=== PATIENT | female | born 1975 | race Caucasian/White ===

== ENCOUNTER 2019-12-23 06:32 | Inpatient (IN) ==
[~2019-12-23 06:32] MED LIST: Famotidine 20 MG/2 ML VIAL IVP ONE; Gabapentin 300 MG CAPSULE PO ONE; Ipratropium/Albuterol Neb 3 ML IH ONE
[2019-12-23] MEDS ORDERED: Bupivacaine/EPI 1:200k 0.25%PF 10 ML VIAL INFILT ONE (06:51)
[2019-12-23] MEDS ORDERED: CeFAZolin Syr 2,000MG/20 ML 2,000 MG/20 ML SYRINGE IVPB ONE (06:52)
[2019-12-23] MEDS ORDERED: Albuterol 2.5 MG/3 ML NEBULIZER IH PRN (06:52)
[2019-12-23] MEDS ORDERED: *HR* Labetalol 20 MG/4 ML SYRINGE IVP PRN (07:00)
[2019-12-23] MEDS ORDERED: Ringers Solution, Lactated 1,000 ML IVC SCH ×2 (07:00→13:51)
[2019-12-23] MEDS ORDERED: *HR* Promethazine 25 MG/ML VIAL IVP PRN (07:00)
[2019-12-23] MEDS ORDERED: Ondansetron 4 MG/2 ML VIAL IVP PRN (07:00)
[2019-12-23] MEDS ORDERED: *HR* Rocuronium Bromide 50 MG/5 ML VIAL ONE ×2 (07:05→09:16)
[2019-12-23] MEDS ORDERED: Ondansetron 4 MG/2 ML VIAL ONE (07:05)
[2019-12-23] MEDS ORDERED: Dexamethasone 4 MG/ML VIAL ONE (07:05)
[2019-12-23] MEDS ORDERED: *HR* Midazolam HCl 2 MG/2 ML VIAL ONE (07:05)
[2019-12-23] MEDS ORDERED: Lidocaine -MPF 2% 2 ML VIAL ONE (07:05)
[2019-12-23] MEDS ORDERED: *HR* Propofol 200 MG/20 ML VIAL IVP ONE (07:05)
[2019-12-23] MEDS ORDERED: *HR* FentaNYL (PF) 100 MCG/2 ML VIAL ONE ×2 (07:05→08:45)
[2019-12-23] MEDS ORDERED: *HR* Succinylcholine 200 MG/10 ML VIAL IVP ONE (07:05)
[2019-12-23] MEDS ORDERED: *HR* HYDROMORPHONE 2 MG/ML VIAL ONE (09:47)
[2019-12-23] MEDS: *HR* HYDROmorphone (PF) 1 MG/ML SYRINGE IVP PRN ×6 (11:13→11:49)
[2019-12-23] MEDS: *HR* LORazepam 2 MG/ML VIAL IVP PRN ×2 (11:57→12:17)
[2019-12-23] MEDS ORDERED: Ibuprofen 600 MG TABLET PO PRN (13:51)
[2019-12-23] MEDS: *HR* OxyCODONE/APAP 5/325 TABLET PO PRN ×2 (16:08→20:22)
[2019-12-23] MEDS ORDERED: Ketorolac 30 MG/ML VIAL IVP PRN (17:39)
[2019-12-23] MEDS: *HR* OxyCODONE Immed Rel 5 MG TABLET PO PRN (18:10)
[2019-12-24] MEDS: *HR* OxyCODONE Immed Rel 5 MG TABLET PO PRN ×2 (00:14→04:33)
[2019-12-24 08:03] VITALS: BP 105/66
[2019-12-24] MEDS: *HR* OxyCODONE/APAP 5/325 TABLET PO PRN (08:56)
== END 2019-12-24 10:05 | disposition home or self-care (01) | DRG 743 ==
LOC: SAMDAY 06:32 → 1NENUOBS 13:51
PROVIDERS: ADMIT Student in an Organized Health Care Education/Training Program; ATTEND Student in an Organized Health Care Education/Training Program

== ENCOUNTER 2019-12-31 15:57 | Inpatient (IN) ==
[2019-12-31] MEDS ORDERED: 0.9 % Sodium Chloride 1,000 ML IVC ONE ×3 (16:09→18:16)
[2019-12-31] MEDS ORDERED: *HR* HYDROmorphone (PF) 1 MG/ML SYRINGE IVP ONE ×2 (16:10→16:53)
[2019-12-31] MEDS ORDERED: Ondansetron 4 MG/2 ML VIAL IVP ONE (16:10)
[2019-12-31] MEDS ORDERED: Isovue-370 500 ML BOTTLE IVP ONE (16:10)
[2019-12-31 16:45] LABS: Hematocrit 34.2 % (35.3-44.9); Hemoglobin 10.1 g/dL (11.5-15.4); Mean Corpuscular HGB Conc 29.5 g/dL (31.6-35.5); Mean Corpuscular Hemoglobin 23.9 pg (28.0-33.3); Mean Platelet Volume 10.4 fL (9.4-12.4); Nucleated Red Blood Cells 0.1 /100 WBC (0); Platelet Count 297 K/mcL (140-400); Red Blood Count 4.22 M/mcL (3.82-4.97); Red Cell Distribution Width 18.2 % (11.5-14.5); White Blood Count 20.6 K/mcL (4.3-11.1)
[2019-12-31 16:49] LABS: INR 1.5; Prothrombin Time 16.9 Seconds (9.4-12.1)
[2019-12-31 17:14] LABS: Eosinophils # 0.4 K/mcL (0.0-0.6); Large Platelets Present (Not Present); Lymphocytes # 0.8 K/mcL (0.6-4.6); Neutrophils # 19.4 K/mcL (1.6-8.9)
[2019-12-31 17:17] LABS: Albumin 3.6 g/dL (3.5-5.7); Bilirubin,Total 1.2 mg/dL (0.3-1.0); Globulin 3.6 g/dL (2.4-3.5); Magnesium 1.5 mg/dL (1.6-2.6); Potassium 2.6 mEq/L (3.5-5.1); Total Protein 7.2 g/dL (6.4-8.9)
[2019-12-31] MEDS ORDERED: Cefepime HCl 2,000 MG in Water for inj. (sterile) 20 ML IVP ONE (17:39)
[2019-12-31] MEDS ORDERED: MetroNIDAZOLE 500 MG/100 ML 500 MG/100 ML BAG IVPB ONE (17:39)
[2019-12-31] MEDS ORDERED: *HR* FentaNYL (PF) 100 MCG/2 ML VIAL IVP ONE (18:23)
[2019-12-31] MEDS ORDERED: Naloxone 0.4 MG/ML INJ IVP PRN (18:41)
[2019-12-31] MEDS ORDERED: Norepinephrine 4 MG in 0.9 % Sodium Chloride 250 ML IVC SCH (18:45)
[2019-12-31] MEDS ORDERED: Vancomycin (wt based) 1,000 MG VIAL IVPB SCH (19:00)
[2019-12-31] MEDS ORDERED: Albuterol 2.5 MG/3 ML NEBULIZER IH PRN (19:21)
[2019-12-31] MEDS ORDERED: Ondansetron 4 MG/2 ML VIAL IVP PRN (20:09)
[2019-12-31] MEDS ORDERED: Ipratropium/Albuterol Neb 3 ML IH ONE (20:09)
[2019-12-31] MEDS ORDERED: *HR* Promethazine 25 MG/ML VIAL IVP PRN (20:09)
[2019-12-31] MEDS ORDERED: *HR* HYDROmorphone (PF) 1 MG/ML SYRINGE IVP PRN (20:09)
[2019-12-31] MEDS ORDERED: Lidocaine -MPF 4% 5 ML AMPUL ONE (20:25)
[2019-12-31] MEDS ORDERED: *HR* Rocuronium Bromide 50 MG/5 ML VIAL ONE (20:25)
[2019-12-31] MEDS ORDERED: *HR* Succinylcholine 200 MG/10 ML VIAL IVP ONE (20:25)
[2019-12-31] MEDS ORDERED: *HR* FentaNYL (PF) 100 MCG/2 ML VIAL ONE ×2 (20:29→20:56)
[2019-12-31] MEDS ORDERED: *HR* Propofol 200 MG/20 ML VIAL IVP ONE (20:29)
[2019-12-31] MEDS ORDERED: Ondansetron 4 MG/2 ML VIAL ONE (20:29)
[2019-12-31] MEDS ORDERED: Lidocaine -MPF 2% 2 ML VIAL ONE (20:29)
[2019-12-31] MEDS ORDERED: Dexamethasone 4 MG/ML VIAL ONE (20:29)
[2019-12-31] MEDS ORDERED: EPHEDrine 50 MG/ML VIAL ONE (20:30)
[2019-12-31] MEDS ORDERED: *HR* Vasopressin 20 UNIT/ML VIAL ONE (20:31)
[2019-12-31] MEDS ORDERED: Heparin 1,000 UNITS/500 mL 500 ML ONE (20:38)
[2019-12-31] MEDS ORDERED: Albumin Human 5% 25.0 GM/500 ML IV.SOLN ONE (21:06)
[2019-12-31] MEDS ORDERED: *HR* PHENYLEPHRINE 1,000 MCG/10 ML SYRINGE IVP ONE (21:21)
[2019-12-31] MEDS ORDERED: CefOXitin 2,000 MG VIAL ONE (21:22)
[2019-12-31] MEDS ORDERED: *HR* HYDROMORPHONE 2 MG/ML VIAL ONE (21:39)
[2019-12-31] MEDS ORDERED: Potassium Phosphate 44 MEQ in 0.9 % Sodium Chloride 250 ML IVPB PRN (21:51)
[2019-12-31] MEDS ORDERED: Calcium Gluconate 1gm/50mL 1 GM/50 ML BAG IVPB PRN (21:51)
[2019-12-31] MEDS ORDERED: Potassium Chloride 40 MEQ/200 ML BAG IVPB PRN (21:51)
[2019-12-31] MEDS ORDERED: Ipratropium/Albuterol Neb 3 ML IH SCH (22:00)
[2019-12-31 22:25] LABS: ABG Base Excess -6 mEq/L (-2 to 3); ABG HCO3 21 mEq/L (21-27); ABG Oxygen Saturation 94 % (95-98); ABG PCO2 47 mmHg (35-45); ABG PH 7.27 pH Units (7.32-7.45); ABG PO2 80 mmHg (85-104); ABG TCO2 23 mEq/L (20-26); Blood Gas VT 525 cc
[2019-12-31] MEDS: *HR* HYDROmorphone (PF) 1 MG/ML SYRINGE IVP PRN (23:40)
[2020-01-01 00:26] LABS: Albumin 3.2 g/dL (3.5-5.7); Albumin/Globulin Ratio 1.1 (1.1-2.2); Bilirubin,Total 1.1 mg/dL (0.3-1.0); Calcium 7.2 mg/dL (8.6-10.3); Globulin 2.9 g/dL (2.4-3.5); Magnesium 1.6 mg/dL (1.6-2.6); Phosphorous 6.2 mg/dL (2.7-4.5); Potassium 3.5 mEq/L (3.5-5.1); Total Protein 6.1 g/dL (6.4-8.9)
[2020-01-01 00:28] LABS: Eosinophils % 0.1 %
[2020-01-01 00:29] LABS: Basophils % 0.2 %; Immature Granulocytes % 0.7 % (0-4); Lymphocytes # 0.6 K/mcL (0.6-4.6); Lymphocytes % 4.1 %; Mean Corpuscular HGB Conc 28.6 g/dL (31.6-35.5); Mean Corpuscular Hemoglobin 23.6 pg (28.0-33.3); Mean Corpuscular Volume 82.6 fL (83.0-100.0); Mean Platelet Volume 10.6 fL (9.4-12.4); Monocytes # 0.3 K/mcL (0.0-1.3); Monocytes % 2.2 %; Neutrophils # 12.7 K/mcL (1.6-8.9); Platelet Count 245 K/mcL (140-400); Red Blood Count 3.39 M/mcL (3.82-4.97); Red Cell Distribution Width 18.1 % (11.5-14.5); Segmented Neutrophils % 92.7 %; White Blood Count 13.7 K/mcL (4.3-11.1)
[2020-01-01] MEDS ORDERED: Potassium Phosphate 44 MEQ in 0.9 % Sodium Chloride 250 ML IVPB PRN (00:39)
[2020-01-01] MEDS ORDERED: Naloxone 0.4 MG/ML INJ IVP PRN ×2 (00:39→12:19)
[2020-01-01] MEDS ORDERED: Norepinephrine 4 MG in 0.9 % Sodium Chloride 250 ML IVC SCH (00:39)
[2020-01-01] MEDS ORDERED: Albuterol 2.5 MG/3 ML NEBULIZER IH PRN ×2 (00:39→12:19)
[2020-01-01] MEDS ORDERED: *HR* OxyCODONE Immed Rel 5 MG TABLET PO PRN (00:39)
[2020-01-01] MEDS ORDERED: Calcium Gluconate 1gm/50mL 1 GM/50 ML BAG IVPB PRN (00:39)
[2020-01-01 00:50] LABS: Hypochromasia Present (Not Present); Platelet Estimate Normal (Normal)
[2020-01-01] MEDS ORDERED: Ondansetron 4 MG/2 ML VIAL IVP PRN ×2 (00:51→12:19)
[2020-01-01] MEDS ORDERED: Acetaminophen IV 1,000 MG/100 ML INFUS..BTL IVPB ONE ×2 (00:52→06:00)
[2020-01-01] MEDS: D5% in 0.9% NACL 1,000 ML IVC SCH ×2 (01:04→11:20)
[2020-01-01] MEDS: Potassium Chloride 40 MEQ/200 ML BAG IVPB PRN ×4 (01:05→07:37)
[2020-01-01] MEDS: *HR* HYDROmorphone (PF) 1 MG/ML SYRINGE IVP PRN ×4 (01:07→21:09)
[2020-01-01] MEDS: Ipratropium/Albuterol Neb 3 ML IH SCH ×4 (03:35→22:13)
[2020-01-01 05:11] LABS: INR 1.6; Prothrombin Time 17.7 Seconds (9.4-12.1)
[2020-01-01 05:12] LABS: Basophils % 0.1 %; Hemoglobin 7.7 g/dL (11.5-15.4); Immature Granulocytes % 0.4 % (0-4)
[2020-01-01 05:14] LABS: Hematocrit 26.9 % (35.3-44.9); Lymphocytes # 0.3 K/mcL (0.6-4.6); Lymphocytes % 2.5 %; Mean Corpuscular HGB Conc 28.6 g/dL (31.6-35.5); Mean Corpuscular Hemoglobin 23.6 pg (28.0-33.3); Mean Corpuscular Volume 82.5 fL (83.0-100.0); Mean Platelet Volume 10.4 fL (9.4-12.4); Monocytes # 0.3 K/mcL (0.0-1.3); Monocytes % 2.8 %; Neutrophils # 10.7 K/mcL (1.6-8.9); Platelet Count 211 K/mcL (140-400); Red Blood Count 3.26 M/mcL (3.82-4.97); Red Cell Distribution Width 18.1 % (11.5-14.5); Segmented Neutrophils % 94.2 %; White Blood Count 11.4 K/mcL (4.3-11.1)
[2020-01-01 05:21] LABS: Bilirubin,Urine Negative (Negative); Blood,Urine Small (Negative); Clarity,Urine Cloudy (Clear); Color,Urine Dark Yellow (Yellow); Glucose,Urine (UA) Normal (Normal); Ketones,Urine Trace mg/dL (Negative); Leukocyte Esterase,Urine Negative (Negative); Nitrite,Urine Negative (Negative); Protein,Urine 100 mg/dL (Neg-Trace); Specific Gravity,Urine > 1.030 (1.010-1.025); Urobilinogen,Urine Normal (Normal)
[2020-01-01 05:22] LABS: Bilirubin,Direct 0.5 mg/dL (0.0-0.2); Bilirubin,Indirect 0.5 mg/dL (0.0-1.0); Calcium 7.3 mg/dL (8.6-10.3); Globulin 2.9 g/dL (2.4-3.5); Magnesium 2.4 mg/dL (1.6-2.6); Phosphorous 5.6 mg/dL (2.7-4.5); Potassium 3.7 mEq/L (3.5-5.1); Total Protein 5.9 g/dL (6.4-8.9)
[2020-01-01 05:23] LABS: Bacteria,Urine None Seen per hpf (None-Few); Squamous Epithelial Cell,Urine Many per lpf (None-Few); WBC,Urine 30-50 per hpf (0-3)
[2020-01-01 05:38] LABS: Hyaline Casts,Urine Few per lpf (None-Few)
[2020-01-01 05:41] LABS: Amorphous Sediment,Urine Few per hpf (Few)
[2020-01-01 05:49] LABS: Platelet Estimate Normal (Normal)
[2020-01-01] MEDS ORDERED: *HR* Heparin 5,000 UNIT/ML VIAL SQ SCH ×2 (06:00)
[2020-01-01] MEDS ORDERED: Cefepime HCl 2,000 MG in Water for inj. (sterile) 20 ML IVP SCH (06:00)
[2020-01-01] MEDS ORDERED: MetroNIDAZOLE 500 MG/100 ML 500 MG/100 ML BAG IVPB SCH ×2 (08:00)
[2020-01-01 09:23] LABS: Adenovirus Not Detected (Not Detect); Bordetella Pertussis Not Detected (Not Detect); Chlamydophila pneumoniae Not Detected (Not Detect); Coronavirus 229E Not Detected (Not Detect); Coronavirus HKU1 Not Detected (Not Detect); Coronavirus NL63 Not Detected (Not Detect); Coronavirus OC43 Not Detected (Not Detect); Human Metapneumovirus Not Detected (Not Detect); Human Rhinovirus/Enterovirus Not Detected (Not Detect); Influenza A Subtype 2009 H1 Not Detected (Not Detect); Influenza B Not Detected (Not Detect); Mycoplasma pneumoniae Not Detected (Not Detect); Parainfluenza Virus 1 Not Detected (Not Detect); Parainfluenza Virus 2 Not Detected (Not Detect); Parainfluenza Virus 3 Not Detected (Not Detect); Parainfluenza Virus 4 Not Detected (Not Detect); Respiratory Syncytial Virus Not Detected (Not Detect)
[2020-01-01] MEDS: Pantoprazole 40 MG VIAL IVP SCH (14:01)
[2020-01-01] MEDS: Budesonide/Formoterol 160/4.5 1 PUFF INH IH SCH ×2 (15:54→22:13)
[2020-01-01] MEDS: MetroNIDAZOLE 500 MG/100 ML 500 MG/100 ML BAG IVPB SCH ×2 (16:23→23:56)
[2020-01-01] MEDS: *HR* Heparin 5,000 UNIT/ML VIAL SQ SCH (17:16)
[2020-01-01] MEDS: Cefepime HCl 2,000 MG in Water for inj. (sterile) 20 ML IVP SCH (17:16)
[2020-01-02] MEDS: *HR* HYDROmorphone (PF) 1 MG/ML SYRINGE IVP PRN ×5 (02:37→20:49)
[2020-01-02] MEDS: Ipratropium/Albuterol Neb 3 ML IH SCH ×4 (03:49→22:20)
[2020-01-02 06:13] LABS: Basophils % 0.1 %; Hematocrit 24.5 % (35.3-44.9); Lymphocytes # 0.5 K/mcL (0.6-4.6); Lymphocytes % 4.3 %; Mean Corpuscular HGB Conc 28.6 g/dL (31.6-35.5); Mean Corpuscular Hemoglobin 23.6 pg (28.0-33.3); Mean Corpuscular Volume 82.5 fL (83.0-100.0); Mean Platelet Volume 10.7 fL (9.4-12.4); Monocytes # 0.3 K/mcL (0.0-1.3); Monocytes % 2.5 %; Neutrophils # 9.8 K/mcL (1.6-8.9); Platelet Count 201 K/mcL (140-400); Red Blood Count 2.97 M/mcL (3.82-4.97); Red Cell Distribution Width 18.3 % (11.5-14.5); Segmented Neutrophils % 92.1 %; White Blood Count 10.6 K/mcL (4.3-11.1)
[2020-01-02 06:33] LABS: Alanine Aminotransferase 5 Units/L (7-52); Albumin/Globulin Ratio 0.9 (1.1-2.2); Alkaline Phosphatase 59 Units/L (34-104); Aspartate Amino Transferase 8 Units/L (13-39); BUN/Creatinine Ratio 24 (6-26); Bilirubin,Total 0.4 mg/dL (0.3-1.0); Blood Urea Nitrogen 24 mg/dL (6-20); Carbon Dioxide 25 mEq/L (23-29); Chloride 108 mEq/L (98-107); Globulin 3.3 g/dL (2.4-3.5); Glucose 125 mg/dL (70-105); Magnesium 2.7 mg/dL (1.6-2.6); Osmolality,Calculated 296 (280-300); Phosphorous 3.6 mg/dL (2.7-4.5); Potassium 3.2 mEq/L (3.5-5.1); Sodium 140 mEq/L (136-145); Total Protein 6.3 g/dL (6.4-8.9); Vancomycin,Trough 17 mcg/mL (5-10); eGFR For African Americans > 60 (> 60); eGFR For Non-African Americans 60 (> 60)
[2020-01-02 06:40] LABS: Platelet Estimate Normal (Normal)
[2020-01-02] MEDS: Cefepime HCl 2,000 MG in Water for inj. (sterile) 20 ML IVP SCH ×2 (06:58→18:07)
[2020-01-02] MEDS: *HR* Heparin 5,000 UNIT/ML VIAL SQ SCH ×2 (07:42→18:08)
[2020-01-02] MEDS: MetroNIDAZOLE 500 MG/100 ML 500 MG/100 ML BAG IVPB SCH ×3 (07:49→23:10)
[2020-01-02] MEDS: Pantoprazole 40 MG VIAL IVP SCH (07:49)
[2020-01-02] MEDS: Budesonide/Formoterol 160/4.5 1 PUFF INH IH SCH ×2 (09:49→22:14)
[2020-01-02] MEDS ORDERED: 0.9 % Sodium Chloride 250 ML IVC ONE (10:52)
[2020-01-02] MEDS: Nystatin SUSP 5 ML UD.LIQ PO SCH ×3 (14:18→20:48)
[2020-01-02 17:43] LABS: Source of Body Fluid OTHER; Source of Body Fluid Other
[2020-01-02] MEDS: GuaiFENesin Liq 200 MG/10 ML UDC PO PRN ×2 (18:08→23:13)
[2020-01-02 19:22] LABS: Appearance of Body Fluid Cloudy (Clear)
[2020-01-02 19:23] LABS: Volume of Body Fluid 15 mL
[2020-01-02 19:27] LABS: Appearance of Body Fluid Cloudy (Clear); Volume of Body Fluid 5 mL
[2020-01-03] MEDS: *HR* HYDROmorphone (PF) 1 MG/ML SYRINGE IVP PRN ×4 (01:44→17:08)
[2020-01-03] MEDS: Ipratropium/Albuterol Neb 3 ML IH SCH ×3 (04:31→16:01)
[2020-01-03] MEDS: Cefepime HCl 2,000 MG in Water for inj. (sterile) 20 ML IVP SCH ×2 (05:06→16:26)
[2020-01-03] MEDS: *HR* Heparin 5,000 UNIT/ML VIAL SQ SCH ×2 (05:06→16:26)
[2020-01-03 05:30] LABS: Basophils % 0.1 %; Eosinophils % 0.2 %; Immature Granulocytes % 0.5 % (0-4); Lymphocytes # 0.9 K/mcL (0.6-4.6); Lymphocytes % 6.9 %; Mean Corpuscular HGB Conc 29.4 g/dL (31.6-35.5); Mean Corpuscular Hemoglobin 24.1 pg (28.0-33.3); Mean Corpuscular Volume 82.2 fL (83.0-100.0); Mean Platelet Volume 11.2 fL (9.4-12.4); Monocytes # 0.3 K/mcL (0.0-1.3); Monocytes % 2.5 %; Neutrophils # 11.4 K/mcL (1.6-8.9); Platelet Count 237 K/mcL (140-400); Red Blood Count 3.77 M/mcL (3.82-4.97); Red Cell Distribution Width 17.6 % (11.5-14.5); Segmented Neutrophils % 89.8 %; White Blood Count 12.7 K/mcL (4.3-11.1)
[2020-01-03 05:33] LABS: Hemoglobin 9.1 g/dL (11.5-15.4)
[2020-01-03 05:41] LABS: BUN/Creatinine Ratio 22 (6-26); Blood Urea Nitrogen 18 mg/dL (6-20); Calcium 8.4 mg/dL (8.6-10.3); Carbon Dioxide 24 mEq/L (23-29); Chloride 105 mEq/L (98-107); Glucose 98 mg/dL (70-105); Magnesium 2.2 mg/dL (1.6-2.6); Osmolality,Calculated 288 (280-300); Phosphorous 2.5 mg/dL (2.7-4.5); Potassium 2.7 mEq/L (3.5-5.1); Sodium 138 mEq/L (136-145); eGFR For African Americans > 60 (> 60); eGFR For Non-African Americans > 60 (> 60)
[2020-01-03] MEDS ORDERED: Potassium Chloride Elixir 20 MEQ/15 ML UDC PO SCH (07:45)
[2020-01-03] MEDS: Pantoprazole 40 MG VIAL IVP SCH (08:00)
[2020-01-03] MEDS: MetroNIDAZOLE 500 MG/100 ML 500 MG/100 ML BAG IVPB SCH ×2 (08:05→16:25)
[2020-01-03] MEDS: Nystatin SUSP 5 ML UD.LIQ PO SCH ×3 (08:10→16:26)
[2020-01-03] MEDS: Budesonide/Formoterol 160/4.5 1 PUFF INH IH SCH (10:10)
[2020-01-03 16:43] VITALS: BP 125/74
[2020-01-03] MEDS ORDERED: 0.9 % Sodium Chloride 1,000 ML IVC SCH (17:00)
[2020-01-03] MEDS ORDERED: Aminoglycoside Consult 1 EACH MC ONE (18:59)
== END 2020-01-03 19:00 | disposition other institution (70) | DRG 853 ==
LOC: EMEROOARM 15:57 → ICNU 19:00 → 2NNU 01-01 12:58 → 2ANU 01-03 15:54
PROVIDERS: ADMIT Student in an Organized Health Care Education/Training Program; ATTEND Student in an Organized Health Care Education/Training Program

== ENCOUNTER 2020-03-16 12:23 | Observation (INO) ==
[2020-03-16] MEDS ORDERED: 0.9 % Sodium Chloride 1,000 ML IVC ONE (12:46)
[2020-03-16] MEDS ORDERED: Ondansetron 4 MG/2 ML VIAL IVP ONE (12:51)
[2020-03-16] MEDS ORDERED: Morphine Sulfate 2 MG/ML SYRINGE IVP ONE (12:51)
[2020-03-16] MEDS ORDERED: Isovue-370 500 ML BOTTLE IVP ONE (12:56)
[2020-03-16 13:17] LABS: Basophils % 0.5 %; Eosinophils # 0.1 K/mcL (0.0-0.6); Eosinophils % 2.4 %; Hematocrit 37.7 % (35.3-44.9); Immature Granulocytes % 0.2 % (0-4); Lymphocytes # 1.2 K/mcL (0.6-4.6); Lymphocytes % 19.7 %; Mean Corpuscular HGB Conc 31.8 g/dL (31.6-35.5); Mean Corpuscular Hemoglobin 25.8 pg (28.0-33.3); Mean Corpuscular Volume 80.9 fL (83.0-100.0); Mean Platelet Volume 11.2 fL (9.4-12.4); Monocytes # 0.4 K/mcL (0.0-1.3); Monocytes % 6.7 %; Neutrophils # 4.2 K/mcL (1.6-8.9); Platelet Count 437 K/mcL (140-400); Red Blood Count 4.66 M/mcL (3.82-4.97); Red Cell Distribution Width 15.3 % (11.5-14.5); Segmented Neutrophils % 70.5 %; White Blood Count 5.9 K/mcL (4.3-11.1)
[2020-03-16 13:25] LABS: INR 1.1; Prothrombin Time 12.5 Seconds (9.4-12.1)
[2020-03-16 13:26] LABS: Bilirubin,Urine Negative (Negative); Blood,Urine Negative (Negative); Color,Urine Yellow (Yellow); Glucose,Urine (UA) Normal (Normal); Ketones,Urine Negative (Negative); Leukocyte Esterase,Urine Small (Negative); Nitrite,Urine Negative (Negative); Protein,Urine 100 mg/dL (Neg-Trace); Specific Gravity,Urine 1.021 (1.010-1.025); Urobilinogen,Urine Normal (Normal)
[2020-03-16 13:28] LABS: Activated Partial Thrombo Time 30.1 Seconds (26.0-36.0)
[2020-03-16 13:30] LABS: Clarity,Urine Slightly Cloudy (Clear)
[2020-03-16 13:31] LABS: RBC,Urine 0-3 per hpf (0-3); Squamous Epithelial Cell,Urine Few per lpf (None-Few); WBC,Urine 0-3 per hpf (0-3)
[2020-03-16 13:42] LABS: Alanine Aminotransferase 20 Units/L (7-52); Albumin 4.6 g/dL (3.5-5.7); Albumin/Globulin Ratio 1.2 (1.1-2.2); Alkaline Phosphatase 88 Units/L (34-104); Aspartate Amino Transferase 15 Units/L (13-39); BUN/Creatinine Ratio 7 (6-26); Bilirubin,Direct 0.2 mg/dL (0.0-0.2); Bilirubin,Indirect 0.4 mg/dL (0.0-1.0); Bilirubin,Total 0.6 mg/dL (0.3-1.0); Blood Urea Nitrogen 8 mg/dL (6-20); Calcium 10.5 mg/dL (8.6-10.3); Carbon Dioxide 24 mEq/L (23-29); Chloride 102 mEq/L (98-107); Glucose 98 mg/dL (70-105); Magnesium 1.9 mg/dL (1.6-2.6); Osmolality,Calculated 282 (280-300); Phosphorous 5.1 mg/dL (2.7-4.5); Potassium 2.5 mEq/L (3.5-5.1); Sodium 137 mEq/L (136-145); Total Protein 8.6 g/dL (6.4-8.9); eGFR For African Americans > 60 (> 60); eGFR For Non-African Americans 56 (> 60)
[2020-03-16 13:43] LABS: Lipase 86 Units/L (11-82); Troponin I < 0.03 ng/mL (< 0.04)
[2020-03-16] MEDS ORDERED: Potassium Chloride 40 MEQ, Lidocaine 1% 2 ML in 0.9 % Sodium Chloride 500 ML IVPB ONE (13:50)
[2020-03-16] MEDS ORDERED: Naloxone 0.4 MG/ML INJ IVP PRN (15:44)
[2020-03-16] MEDS: *HR* OxyCODONE Immed Rel 5 MG TABLET PO PRN (16:52)
[2020-03-16] MEDS: Ringers Solution, Lactated 1,000 ML IVC SCH (18:08)
[2020-03-16] MEDS: Ondansetron 4 MG/2 ML VIAL IVP PRN (21:34)
[2020-03-16] MEDS: Acetaminophen 325 MG TABLET PO PRN (22:48)
[2020-03-17] MEDS: Ringers Solution, Lactated 1,000 ML IVC SCH ×3 (02:33→15:50)
[2020-03-17] MEDS: Vancomycin Oral Soln 125 MG/2.5 ML UDC PO SCH ×5 (03:11→21:54)
[2020-03-17] MEDS: *HR* HYDROcodone/Acet 5/325 mg TABLET PO PRN ×3 (05:12→18:45)
[2020-03-17 06:33] LABS: Basophils % 1.2 %; Eosinophils # 0.2 K/mcL (0.0-0.6); Hematocrit 29.5 % (35.3-44.9); Hemoglobin 9.2 g/dL (11.5-15.4); Immature Granulocytes % 0.3 % (0-4); Lymphocytes % 29.2 %; Mean Corpuscular HGB Conc 31.2 g/dL (31.6-35.5); Mean Corpuscular Hemoglobin 26.1 pg (28.0-33.3); Mean Corpuscular Volume 83.6 fL (83.0-100.0); Mean Platelet Volume 10.6 fL (9.4-12.4); Monocytes # 0.3 K/mcL (0.0-1.3); Monocytes % 9.6 %; Neutrophils # 1.8 K/mcL (1.6-8.9); Platelet Count 308 K/mcL (140-400); Red Blood Count 3.53 M/mcL (3.82-4.97); Red Cell Distribution Width 15.1 % (11.5-14.5); Segmented Neutrophils % 52.7 %; White Blood Count 3.4 K/mcL (4.3-11.1)
[2020-03-17 06:49] LABS: BUN/Creatinine Ratio 8 (6-26); Blood Urea Nitrogen 7 mg/dL (6-20); Calcium 9.1 mg/dL (8.6-10.3); Carbon Dioxide 24 mEq/L (23-29); Chloride 108 mEq/L (98-107); Glucose 84 mg/dL (70-105); Lipase 55 Units/L (11-82); Magnesium 1.7 mg/dL (1.6-2.6); Osmolality,Calculated 289 (280-300); Potassium 2.8 mEq/L (3.5-5.1); Sodium 141 mEq/L (136-145); eGFR For African Americans > 60 (> 60); eGFR For Non-African Americans > 60 (> 60)
[2020-03-17] MEDS: Ondansetron 4 MG/2 ML VIAL IVP PRN (09:31)
[2020-03-17] MEDS: *HR* Promethazine 25 MG/ML VIAL IVP PRN (12:11)
[2020-03-17 12:37] LABS: Hematocrit 32.6 % (35.3-44.9); Hemoglobin 9.9 g/dL (11.5-15.4)
[2020-03-17 20:05] LABS: Hematocrit 30.3 % (35.3-44.9); Hemoglobin 9.4 g/dL (11.5-15.4)
[2020-03-18] MEDS: Acetaminophen 325 MG TABLET PO PRN (00:23)
[2020-03-18] MEDS: *HR* OxyCODONE Immed Rel 5 MG TABLET PO PRN ×4 (00:23→22:20)
[2020-03-18] MEDS: Ondansetron 4 MG/2 ML VIAL IVP PRN ×2 (00:23→10:06)
[2020-03-18] MEDS: Ringers Solution, Lactated 1,000 ML IVC SCH (02:41)
[2020-03-18 06:24] LABS: Basophils % 0.9 %; Eosinophils # 0.3 K/mcL (0.0-0.6); Eosinophils % 7.9 %; Hematocrit 30.1 % (35.3-44.9); Hemoglobin 9.3 g/dL (11.5-15.4); Immature Granulocytes % 0.3 % (0-4); Lymphocytes # 1.4 K/mcL (0.6-4.6); Lymphocytes % 40.4 %; Mean Corpuscular HGB Conc 30.9 g/dL (31.6-35.5); Mean Corpuscular Hemoglobin 25.6 pg (28.0-33.3); Mean Corpuscular Volume 82.9 fL (83.0-100.0); Mean Platelet Volume 11.1 fL (9.4-12.4); Monocytes # 0.3 K/mcL (0.0-1.3); Monocytes % 9.4 %; Neutrophils # 1.4 K/mcL (1.6-8.9); Platelet Count 312 K/mcL (140-400); Red Blood Count 3.63 M/mcL (3.82-4.97); Red Cell Distribution Width 14.8 % (11.5-14.5); Segmented Neutrophils % 41.1 %; White Blood Count 3.4 K/mcL (4.3-11.1)
[2020-03-18 06:47] LABS: BUN/Creatinine Ratio 5 (6-26); Blood Urea Nitrogen 4 mg/dL (6-20); Calcium 8.9 mg/dL (8.6-10.3); Carbon Dioxide 23 mEq/L (23-29); Chloride 110 mEq/L (98-107); Glucose 74 mg/dL (70-105); Magnesium 2.1 mg/dL (1.6-2.6); Osmolality,Calculated 286 (280-300); Phosphorous 4.9 mg/dL (2.7-4.5); Sodium 140 mEq/L (136-145); eGFR For African Americans > 60 (> 60); eGFR For Non-African Americans > 60 (> 60)
[2020-03-18 06:49] LABS: Platelet Estimate Normal (Normal)
[2020-03-18] MEDS: Vancomycin Oral Soln 125 MG/2.5 ML UDC PO SCH ×4 (08:02→20:38)
[2020-03-18] MEDS: *HR* Promethazine 25 MG/ML VIAL IVP PRN (15:38)
[2020-03-19] MEDS: *HR* HYDROcodone/Acet 5/325 mg TABLET PO PRN (02:48)
[2020-03-19] MEDS: Ondansetron 4 MG/2 ML VIAL IVP PRN (02:49)
[2020-03-19 07:30] LABS: Basophils % 0.6 %; Eosinophils # 0.3 K/mcL (0.0-0.6); Eosinophils % 8.4 %; Hematocrit 31.5 % (35.3-44.9); Hemoglobin 9.3 g/dL (11.5-15.4); Immature Granulocytes % 0.3 % (0-4); Lymphocytes # 1.3 K/mcL (0.6-4.6); Lymphocytes % 40.5 %; Mean Corpuscular HGB Conc 29.5 g/dL (31.6-35.5); Mean Corpuscular Hemoglobin 25.4 pg (28.0-33.3); Mean Corpuscular Volume 86.1 fL (83.0-100.0); Mean Platelet Volume 12.2 fL (9.4-12.4); Monocytes # 0.3 K/mcL (0.0-1.3); Monocytes % 8.7 %; Neutrophils # 1.3 K/mcL (1.6-8.9); Platelet Count 158 K/mcL (140-400); Red Blood Count 3.66 M/mcL (3.82-4.97); Segmented Neutrophils % 41.5 %; White Blood Count 3.1 K/mcL (4.3-11.1)
[2020-03-19] MEDS: *HR* OxyCODONE Immed Rel 5 MG TABLET PO PRN (07:33)
[2020-03-19] MEDS: Vancomycin Oral Soln 125 MG/2.5 ML UDC PO SCH ×2 (07:34→11:30)
[2020-03-19 07:46] LABS: BUN/Creatinine Ratio 4 (6-26); Blood Urea Nitrogen 4 mg/dL (6-20); Calcium 9.2 mg/dL (8.6-10.3); Carbon Dioxide 24 mEq/L (23-29); Chloride 109 mEq/L (98-107); Glucose 73 mg/dL (70-105); Osmolality,Calculated 289 (280-300); Phosphorous 5.3 mg/dL (2.7-4.5); Potassium 3.2 mEq/L (3.5-5.1); Sodium 142 mEq/L (136-145); eGFR For African Americans > 60 (> 60); eGFR For Non-African Americans > 60 (> 60)
[2020-03-19] MEDS ORDERED: *HR* HYDROcodone/Acet 5/325 mg TABLET PO PRN (07:54)
[2020-03-19 10:30] VITALS: BP 116/77
== END 2020-03-19 13:15 | disposition home or self-care (01) ==
LOC: 3ANU 12:23 → EMEROOARM 12:23 → SUATTDRO 15:23 → 3ANU 16:44
PROVIDERS: ADMIT Internal Medicine; ATTEND Internal Medicine